=== PATIENT | male | born 1945 | race Caucasian/White ===

== ENCOUNTER 2016-02-09 | Emergency (ER) | payer MEDICARE ==
--- NOTE | 2016-02-09 13:51 | ED ---
General Adult HPI - General Chief complaint: Fall Stated complaint: NECK LAC Time Seen by Provider: 02/09/16 13:15 Source: patient, RN notes reviewed Mode of arrival: EMS Limitations: no limitations - History of Present Illness Initial comments: This is a 70-year-old male who presents to the [facility] with a laceration to the left side neck. Patient states he fell 2 days ago, "give or take a day". Patient states he slipped and fell in the snow, but is unsure what he fell on. Patient states he did not know he was bleeding but did apply tape over the wound. Patient states he went to get a meal and was sent to the [facility] because he was covered in blood. Patient denies any headache, loss of consciousness, nausea/ vomiting. Patient is legally blind in both eyes. Patient is currently on oral antibiotics for an eye infection. Patient denies any neck pain or back pain today. Patient is able to ambulate. Patient denies any recent fever, chills, shortness breath, chest pain, abdominal pain, nausea/vomiting/diarrhea, numbness , tingling, hematuria, or visual changes, suicidal ideation or homicidal ideation or any other complaints. - Related Data Previous Rx's Medication Instructions Recorded Cephalexin [Keflex] 500 mg PO Q6HR #1 cap 02/02/16 Moxifloxacin HCl 400 mg PO DAILY #10 tab 02/02/16 Vira[place]-Mshyaoasf-Wtrperkm 1 applic LEFT EYE DAILY #1 02/02/16 [Maxitrol Ophth Oint] oint...g. Allergies Allergy/AdvReac Type Severity Reaction Status Date / Time No Known Allergies Allergy Verified 02/01/16 17:33 Review of Systems ROS Statement: Those systems with pertinent positive or pertinent negative responses have been documented in the HPI. ROS Other: All systems not noted in ROS Statement are negative. Past Medical History Additional Past Medical History / Comment(s): BLIND. LEFT EYE RETINAL DETACHMENT. STATES NO OTHER HEalTH ISSUES. borderline high blood pressure, tremors History of Any Multi-Drug Resistant Organisms: None Reported Additional Past Surgical History / Comment(s): CORNEAL TRANSPLANT LEFT EYE. 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 Past Anesthesia/Blood Transfusion Reactions: No Reported Reaction Past Psychological History: No Psychological Hx Reported Smoking Status: Never smoker Past Alcohol Use History: Rare Past Drug Use History: None Reported - Past Family History Mother Family Medical History: No Reported History General Exam - General Exam Comments Initial Comments: General: The patient is awake and alert, in no distress, and does not appear acutely ill. Eye: Patient is legally blind. No purulent discharge or erythema around the eyes. No pain to the eyes. Neck: There is an approximately 3 cm laceration to the left side neck, no active bleeding. No erythema, purulent drainage warmth or tenderness. The neck is supple, there is no tenderness or JVD. No cervical midline tenderness. Cardiovascular: There is a regular rate and rhythm. No murmur, rub or gallop is appreciated. Respiratory: Lungs are clear to auscultation, respirations are non-labored, breath sounds are equal. No wheezes, stridor, rales, or rhonchi. Musculoskeletal: Normal ROM, no tenderness. Strength 5/5. Sensation intact. Radial pulses equal bilaterally 2+. Neurological: A&O x 3. CN II-XII intact, There are no obvious motor or sensory deficits. Coordination appears grossly intact. Speech is normal. Skin: There is an approximately 3 cm laceration to the left side neck. No active bleeding, no erythema ,or purulent drainage, warmth or tenderness. Skin is warm and dry and no rashes are noted. Psychiatric: Cooperative, appropriate mood & affect, normal judgment. Limitations: no limitations Course Vital Signs 02/09/16 13:02 Temperature 97.5 F L Pulse Rate 86 Respiratory 18 Rate Blood Pressure 123/67 O2 Sat by Pulse 97 Oximetry Medical Decision Making - Medical Decision Making Physical 70-year-old male who presents with a laceration over 24 hours old to the left side neck. There is an approximately 3 cm laceration to the left side neck, no active bleeding. No erythema, purulent drainage warmth or tenderness. The neck is supple, there is no tenderness or JVD. The wound was cleansed with normal saline. No foreign body or damage to deep structures are noted. Bactrim was applied and Steri-Strips were used to approximate the edges of the wound. Patient is already on a course of oral antibiotics. Patient is up-to- date on his tetanus shot. Discussed return parameters. Discussed that patient should follow up with PCP in one to 2 days or return to the [facility] for any worsening symptoms or any further concerns. Patient was receptive to this plan patient was discharged home. I discussed this case with attending physician Dr. Puga who agrees with plan as stated above. Disposition Clinical Impression: Laceration Disposition: HOME SELF-CARE Condition: Good Instructions: Laceration (ED) Additional Instructions: Please follow-up with family doctor in the next 2 days of symptoms have not improved. Please return to emergency room if the symptoms increase or worsen or for any other concerns. Referrals: Paulina Soriano MD [Primary Care Provider] - 1-2 days Time of Disposition: 13:55
== END 2016-02-09 14:03 | disposition home or self-care (01) ==
CPT/HCPCS: 99282

== ENCOUNTER 2016-02-10 16:46 | Emergency (ER) | payer MEDICARE ==
[2016-02-10] MEDS ORDERED: DIPH,PERTUS(ACELL)TETVAC-LF 0.5 ML VIAL IM ONE (17:09)
--- NOTE | 2016-02-10 17:13 | ED ---
General Adult HPI - General Chief complaint: Psychiatric Symptoms Stated complaint: Petition Time Seen by Provider: 02/10/16 16:59 Source: patient, police, RN notes reviewed Mode of arrival: wheelchair Limitations: no limitations - History of Present Illness Initial comments: Patient is a pleasant 70-year-old male presenting to the emergency department for depression. Patient attempted to cut his left neck couple of days ago. Patient was in the emergency department yesterday however states it was accidental at that time. Patient now admits that he intentionally did this. Patient is depressed with suicidal thoughts. No history of suicide attempts prior to this. No homicidal thoughts. No hallucinations. No physical complaints. Unclear last tetanus. Rare alcohol use. No street drug use. Patient was brought in by police and petition. Patient states he is having difficulty with his recent move of living locations. Patient is also blind. - Related Data Home Medications Medication Instructions Recorded Confirmed Levofloxacin [Levaquin] 750 mg PO DAILY 02/10/16 02/10/16 Previous Rx's Medication Instructions Recorded Cephalexin [Keflex] 500 mg PO Q6HR #1 cap 02/02/16 Allergies Allergy/AdvReac Type Severity Reaction Status Date / Time No Known Allergies Allergy Verified 02/10/16 17:22 Review of Systems ROS Statement: Those systems with pertinent positive or pertinent negative responses have been documented in the HPI. ROS Other: All systems not noted in ROS Statement are negative. Constitutional: Denies: fever Eyes: Reports: other (Blind) ENT: Denies: throat pain Respiratory: Denies: cough Cardiovascular: Denies: chest pain Endocrine: Denies: fatigue Gastrointestinal: Denies: abdominal pain Genitourinary: Denies: dysuria Musculoskeletal: Denies: back pain Skin: Denies: rash Psychiatric: Reports: depression, suicidal thoughts. Denies: auditory hallucinations, visual hallucinations, homicidal thoughts Past Medical History Additional Past Medical History / Comment(s): BLIND. LEFT EYE RETINAL DETACHMENT. STATES NO OTHER HEalTH ISSUES. borderline high blood pressure, tremors History of Any Multi-Drug Resistant Organisms: None Reported Additional Past Surgical History / Comment(s): CORNEAL TRANSPLANT LEFT EYE. 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 Past Anesthesia/Blood Transfusion Reactions: No Reported Reaction Past Psychological History: No Psychological Hx Reported Smoking Status: Never smoker Past Alcohol Use History: Rare Past Drug Use History: None Reported - Past Family History Mother Family Medical History: No Reported History General Exam Limitations: no limitations General appearance: alert, in no apparent distress Head exam: Present: atraumatic Eye exam: Present: other (Atrophied eye sockets) ENT exam: Present: normal oropharynx Neck exam: Present: other (Laceration left lateral neck with bandages in place. Carotid pulses intact.) Respiratory exam: Present: normal lung sounds bilaterally Cardiovascular Exam: Present: regular rate, normal rhythm GI/Abdominal exam: Present: soft. Absent: tenderness Extremities exam: Present: normal inspection Neurological exam: Present: alert Psychiatric exam: Present: depressed, suicidal ideation Skin exam: Present: abrasion (Healing laceration left neck with Steri-Strips in place) Course Vital Signs 02/10/16 02/10/16 16:48 17:18 Temperature 97.8 F 97.2 F L Pulse Rate 107 H 99 Respiratory 18 16 Rate Blood Pressure 131/84 132/79 O2 Sat by Pulse 97 96 Oximetry EKG Findings - EKG Comments: EKG Findings:: Normal sinus rhythm at 81. CA 150. QRS 98. QT 346. QTc 41. Left axis. Normal QRS. Normal ST-T. Medical Decision Making - Medical Decision Making Patient was seen by mental health services, who will transfer for geriatric psychiatric admission. Positive clinical certificate completed. - Lab Data Result diagrams: 02/10/16 17:30 02/10/16 17:30 Lab Results 02/10/16 02/10/16 02/10/16 Range/Units 17:30 17:30 18:00 WBC 7.0 (3.8-10.6) k/uL RBC 3.92 L (4.30-5.90) m/uL Hgb 11.9 L (13.0-17.5) gm/dL Hct 35.9 L (39.0-53.0) % MCV 91.6 (80.0-100.0) fL MCH 30.3 (25.0-35.0) pg MCHC 33.1 (31.0-37.0) g/dL RDW 13.2 (11.5-15.5) % Plt Count 327 D (150-450) k/uL Neutrophils % 77 % Lymphocytes % 16 % Monocytes % 5 % Eosinophils % 0 % Basophils % 1 % Neutrophils # 5.4 (1.3-7.7) k/uL Lymphocytes # 1.1 (1.0-4.8) k/uL Monocytes # 0.3 (0-1.0) k/uL Eosinophils # 0.0 (0-0.7) k/uL Basophils # 0.1 (0-0.2) k/uL Sodium 141 (137-145) mmol/L Potassium 4.5 (3.5-5.1) mmol/L Chloride 102 (98-107) mmol/L Carbon Dioxide 28 (22-30) mmol/L Anion Gap 11 mmol/L BUN 24 H (9-20) mg/dL Creatinine 0.84 (0.66-1.25) mg/dL Est GFR (MDRD) Af Amer >60 (>60 ml/min/1.73 sqM) Est GFR (MDRD) Non-Af >60 (>60 ml/min/1.73 sqM) Glucose 166 H (74-99) mg/dL Calcium 8.9 (8.4-10.2) mg/dL Urine Color Yellow Urine Appearance Clear (Clear) Urine pH 5.5 (5.0-8.0) Ur Specific [place] 1.028 (1.001-1.035) Urine Protein Trace H (Negative) Urine Glucose (UA) Negative (Negative) Urine Ketones Negative (Negative) Urine Blood Negative (Negative) Urine Nitrate Negative (Negative) Urine Bilirubin Negative (Negative) Urine Urobilinogen 3.0 (<2.0) mg/dL Ur Leukocyte Esterase Negative (Negative) Urine Opiates Screen Detected H (NotDetected) Ur Oxycodone Screen Not Detected (NotDetected) Urine Methadone Screen Not Detected (NotDetected) Ur Propoxyphene Screen Not Detected (NotDetected) Ur Barbiturates Screen Not Detected (NotDetected) U Tricyclic Antidepress Not Detected (NotDetected) Ur Phencyclidine Scrn Not Detected (NotDetected) Ur Amphetamines Screen Not Detected (NotDetected) U Methamphetamines Scrn Not Detected (NotDetected) U Benzodiazepines Scrn Not Detected (NotDetected) Urine Cocaine Screen Not Detected (NotDetected) U Marijuana (THC) Screen Not Detected (NotDetected) Serum Alcohol <10 mg/dL Disposition Clinical Impression: Depression, Suicidal ideation Disposition: TRANSFER TO PSYCH HOSP/UNIT
[2016-02-10 17:30] VITALS: RESP 16
[2016-02-10 17:56] LABS: Basophils # (A) 0.1 k/uL (0-0.2); Basophils % (A) 1 %; CH 30.4; CHCM 33.3; Eosinophils % (A) 0 %; HCT 35.9 % (39.0-53.0); HDW 2.23; HGB 11.9 gm/dL (13.0-17.5); Luc # (Auto) 0.06; Luc % (Auto) 1; Lymphocytes # (A) 1.1 k/uL (1.0-4.8); Lymphocytes % (A) 16 %; MCH 30.3 pg (25.0-35.0); MCHC 33.1 g/dL (31.0-37.0); MCV 91.6 fL (80.0-100.0); Mean Platelet Volume 7.7; Monocytes # (A) 0.3 k/uL (0-1.0); Monocytes % (A) 5 %; Neutrophils # (A) 5.4 k/uL (1.3-7.7); Neutrophils % (A) 77 %; RBC 3.92 m/uL (4.30-5.90); RDW 13.2 % (11.5-15.5); WBC (Perox) 7.06
[2016-02-10 18:00] LABS: Alcohol <10 mg/dL; Anion Gap 11 mmol/L; Blood Urea Nitrogen 24 mg/dL (9-20); Calcium 8.9 mg/dL (8.4-10.2); Carbon Dioxide 28 mmol/L (22-30); Chloride 102 mmol/L (98-107); Glucose 166 mg/dL (74-99); Non-African American GFR(MDRD) >60 (>60 ml/min/1.73 sqM); Potassium 4.5 mmol/L (3.5-5.1); Sodium 141 mmol/L (137-145)
[2016-02-10 18:42] LABS: Appearance,Urine Clear (Clear); Bilirubin,Urine Negative (Negative); Glucose,Urine (UA) Negative (Negative); Ketones,Urine Negative (Negative); Leukocyte Esterase,Urine Negative (Negative); Nitrite,Urine Negative (Negative); PH, Urine 5.5 (5.0-8.0); Protein,Urine Trace (Negative); Specific Gravity,Urine 1.028 (1.001-1.035); UA Billing (MACRO vs. MICRO) CHEM
[2016-02-10 23:13] VITALS: BP 135/92; PULSE 69; TEMP 97.6
== END 2016-02-10 23:55 ==
LOC: EC 16:46
DX: F32.9 Major depressive disorder, single episode, unspecified (principal); R45.851 Suicidal ideations; S10.91XA Abrasion of unspecified part of neck, initial encounter; X58.XXXA Exposure to other specified factors, initial encounter
CPT/HCPCS: 36415; 80048; 80306; 80320; 81003; 82075; 85025; 93005; 99285